=== PATIENT | male | born 1950 | race Caucasian/White ===

== ENCOUNTER 2017-06-28 00:11 | Emergency (ER) | payer MEDICARE, BC ==
[~2017-06-28] VITALS: Ht 182.9 cm; Wt 81.0 kg
[2017-06-28] MEDS ORDERED: ONDANSETRON HCL 4MG/2ML VIAL IV STA (01:06)
[2017-06-28] MEDS ORDERED: MORPHINE SULFATE 4 MG/ML CPJ (NOT FOR IM USE) IV STA (01:06)
[2017-06-28 03:56] VITALS: BP 123/81
== END 2017-06-28 03:57 | disposition home or self-care (01) ==
LOC: ER 00:11
DX: S42.002A Fracture of unspecified part of left clavicle, initial encounter for closed fracture (principal); I48.91 Unspecified atrial fibrillation; W18.39XA Other fall on same level, initial encounter; Y93.89 Activity, other specified; Y99.8 Other external cause status; Y92.89 Other specified places as the place of occurrence of the external cause
CPT/HCPCS: 71010; 73030; 96374; 96375; 99284; J2270; J2405